=== PATIENT | male | born 1960 ===

== ENCOUNTER 2019-12-05 10:51 | Day surgery (SDC) | payer OTHER ==
[~2019-12-05] VITALS: Ht 182.9 cm; Wt 150.8 kg
[~2019-12-05 10:51] MED LIST: ALLO300 PO; ASPI81CH PO; COLE625 PO; DIPH50 PO; EZET10 PO; FAMO20 PO; IBUP600 PO; INDO75CR PO; LEVSOD150 PO; LEVSOD200; LEVSOD200 PO; LISI10 PO; MECL25 PO; METPRE4DP PO; PRED20 PO; PROB500 PO; RANI150 PO
== END 2019-12-05 13:04 | disposition home or self-care (01) ==
LOC: ORSCSDS 10:51
PROVIDERS: Surgery
PROC: 0DJD8ZZ Inspection of Lower Intestinal Tract, Via Natural or Artificial Opening Endoscopic (ICD-10-PCS; principal; 2019-12-05 12:15)
DX: Z12.11 Encounter for screening for malignant neoplasm of colon (principal); Z86.010 Personal history of colon polyps; G47.33 Obstructive sleep apnea (adult) (pediatric); I10 Essential (primary) hypertension; Z79.82 Long term (current) use of aspirin; Z79.899 Other long term (current) drug therapy
CPT/HCPCS: J0461; J2405; J2704; J7120